=== PATIENT | female | born 1985 | race Caucasian/White ===

== ENCOUNTER → 2023-10-12 06:41 | Day surgery (SDC) | payer OTHER, SELFPAY | LOC: GI 06:41 | PROVIDERS: ATTENDING PHYSICIAN Internal Medicine | DX: Z12.11 Encounter for screening for malignant neoplasm of colon (principal); K64.8 Other hemorrhoids; K29.50 Unspecified chronic gastritis without bleeding; B96.81 Helicobacter pylori [H. pylori] as the cause of diseases classified elsewhere; R07.89 Other chest pain; R12 Heartburn | CPT/HCPCS: 45378; 43239; 88305; 88341; 88342 ==

== ENCOUNTER → 2023-11-08 06:47 | Outpatient (REF) | payer OTHER, SELFPAY | LOC: RAD 06:47 | PROVIDERS: ATTENDING PHYSICIAN Nurse Practitioner Family; FAMILY PHYSICIAN Student in an Organized Health Care Education/Training Program | DX: G54.0 Brachial plexus disorders (principal) | CPT/HCPCS: 93930 ==

== ENCOUNTER → 2024-03-05 15:49 | Outpatient (REF) | payer OTHER, SELFPAY ==
[2024-03-05 15:07] LABS: % Basophils 1.4 % (0-2); % Immature Granulocytes 0.2 % (0-0.5); % Lymphocytes 32.9 % (20.5-51.1); % Neutrophils 53.5 % (42.2-75.2); Absolute Basophils 0.1 10^3/uL (0-0.2); Absolute Eosinophils 0.4 10^3/uL (0-0.7); Absolute Lymphocytes 2.9 10^3/uL (1.2-3.4); Absolute Monocytes 0.7 10^3/uL (0.1-0.6); Absolute Neutrophils 4.6 10^3/uL (1.4-6.5); Hematocrit 38.3 % (37.0-47.0); Hemoglobin 13.8 g/dL (12.0-16.0); Mean Corpuscular Hgb 30.4 pg (27.0-31.0); Mean Corpuscular Volume 84.4 fL (81.0-99.0); Mean Platelet Volume 10.4 fL (7.4-10.4); Nucleated Red Blood Cells % 0 %; Platelet Count 290 10^3/uL (130-400); Red Blood Cell Count 4.54 10^6/uL (4.20-5.40); Red Cell Dist. Width 14.1 % (11.5-14.5); White Blood Cell Count 8.7 10^3/uL (4.8-10.8)
== END ==
LOC: OIDL 15:49
PROVIDERS: ATTENDING PHYSICIAN Nurse Practitioner Family
DX: D50.9 Iron deficiency anemia, unspecified (principal)
CPT/HCPCS: 85025

== ENCOUNTER → 2024-03-19 14:30 | Outpatient (REF) | payer OTHER, SELFPAY ==
[2024-03-19 10:58] LABS: % Basophils 1.7 % (0-2); % Eosinophils 2.7 % (0-6); % Immature Granulocytes 0.2 % (0-0.5); % Lymphocytes 41.3 % (20.5-51.1); % Monocytes 9.7 % (1.7-9.3); % Neutrophils 44.4 % (42.2-75.2); Absolute Basophils 0.1 10^3/uL (0-0.2); Absolute Eosinophils 0.2 10^3/uL (0-0.7); Absolute Lymphocytes 2.5 10^3/uL (1.2-3.4); Absolute Monocytes 0.6 10^3/uL (0.1-0.6); Absolute Neutrophils 2.7 10^3/uL (1.4-6.5); Hematocrit 38.9 % (37.0-47.0); Hemoglobin 13.8 g/dL (12.0-16.0); Mean Corp Hgb Conc. 35.5 g/dL (33.0-37.0); Mean Corpuscular Hgb 30.6 pg (27.0-31.0); Mean Corpuscular Volume 86.3 fL (81.0-99.0); Mean Platelet Volume 9.7 fL (7.4-10.4); Nucleated Red Blood Cells % 0 %; Platelet Count 297 10^3/uL (130-400); Red Blood Cell Count 4.51 10^6/uL (4.20-5.40); Red Cell Dist. Width 12.8 % (11.5-14.5)
== END ==
LOC: OIDL 14:30
PROVIDERS: ATTENDING PHYSICIAN Nurse Practitioner Family
DX: D50.9 Iron deficiency anemia, unspecified (principal); R53.83 Other fatigue; R00.0 Tachycardia, unspecified
CPT/HCPCS: 85025

== ENCOUNTER → 2024-06-13 13:33 | Outpatient (REF) | payer OTHER, SELFPAY | LOC: RAD 13:33 | PROVIDERS: ATTENDING PHYSICIAN Physical Medicine & Rehabilitation; FAMILY PHYSICIAN Emergency Medicine | DX: M54.14 Radiculopathy, thoracic region (principal) | CPT/HCPCS: 72072 ==

== ENCOUNTER → 2024-07-23 15:55 | Outpatient (REF) | payer OTHER, SELFPAY | LOC: RAD 15:55 | PROVIDERS: ATTENDING PHYSICIAN Emergency Medicine | DX: R93.89 Abnormal findings on diagnostic imaging of other specified body structures (principal); M79.89 Other specified soft tissue disorders | CPT/HCPCS: 71260; Q9967 ==

== ENCOUNTER → 2024-10-30 14:01 | Outpatient (REF) | payer OTHER, SELFPAY | LOC: RAD 14:01 | PROVIDERS: ATTENDING PHYSICIAN Nurse Practitioner Family; FAMILY PHYSICIAN Emergency Medicine | DX: R22.1 Localized swelling, mass and lump, neck (principal) | CPT/HCPCS: 73000 ==

== ENCOUNTER → 2024-11-06 10:06 | Outpatient (REF) | payer OTHER, SELFPAY | LOC: HWRAD 10:06 | PROVIDERS: ATTENDING PHYSICIAN Nurse Practitioner Family | DX: R22.1 Localized swelling, mass and lump, neck (principal) | CPT/HCPCS: 76536 ==

== ENCOUNTER → 2025-04-05 07:54 | Outpatient (REF) | payer OTHER, SELFPAY | LOC: RAD 07:54 | PROVIDERS: ATTENDING PHYSICIAN Family Medicine | DX: R93.89 Abnormal findings on diagnostic imaging of other specified body structures (principal) | CPT/HCPCS: 71260; Q9967 ==

== ENCOUNTER 2025-04-06 15:16 | Emergency (ER) | payer OTHER, SELFPAY ==
[2025-04-06 15:27] VITALS: BP 122/86
[2025-04-06 16:01] LABS: Hematocrit 39.6 % (37.0-47.0); Hemoglobin 13.8 g/dL (12.0-16.0); Mean Corp Hgb Conc. 34.8 g/dL (33.0-37.0); Mean Corpuscular Volume 88.0 fL (81.0-99.0); Nucleated Red Blood Cells % 0 %; Platelet Count 282 10^3/uL (130-400); Red Cell Dist. Width 12.3 % (11.5-14.5)
[2025-04-06 16:29] LABS: HCG, Serum Qualitative Screen Negative
[2025-04-06 16:34] LABS: ALT (SGPT) 21 U/L (0-35); AST (SGOT) 25 U/L (14-36); Albumin 4.8 g/dl (3.5-5.0); Alkaline Phosphatase 66 U/L (38-126); Blood Urea Nitrogen 12 mg/dl (7-17); Calcium 9.8 mg/dl (8.4-10.2); Carbon Dioxide 24 mmol/L (22-30); Chloride 107 mmol/L (98-107); Glucose 102 mg/dl (70-99); Lipase 173 U/L (23-300); Potassium 4.5 mmol/L (3.5-5.1); Sodium 137 mmol/L (135-145); Total Protein 7.8 g/dl (6.3-8.2); eGFR > 60.00
[2025-04-06 16:39] LABS: Troponin I < 0.012 ng/ml
--- NOTE | 2025-04-06 18:26 | ED.GENMED ---
History of Present Illness
<Dheeraj Landers Jr., PA-C - Last Filed: 04/06/25 22:15>
General
Chief Complaint: Abdominal Pain
Source: patient
Exam Limitations: none
Time Seen by Provider: 04/06/25 18:03
Nursing documentation reviewed up to this point in time: agreed with
History of Present Illness
History of Present Illness:
39-year-old female past medical history of hypothyroidism presenting to the emergency department today with concerns of left upper quadrant abdominal pain worsening throughout the week this week severe episode prior to arrival some mild pain ongoing
and is reproducible. Radiates to the left flank and left side. Patient also feels some lightheadedness and palpitations when pain is severe. Has had cardiac workups in the past also had a normal endoscopy and colonoscopy about 1 year ago.
Additionally had a chest CT scan yesterday with contrast that did not show any emergent process did show a 1.8 x 0.9 cm cystic structure in the left anterior lateral margin of the T4
Past History
<Dheeraj Landers Jr., PA-C - Last Filed: 04/06/25 22:15>
Past History
ED Past Medical History: Hypothyroidism
ED Past Surgical History: Appendectomy
Social History
Tobacco: Non-smoker
Alcohol: Occasional
Drug: None
Review of Systems
<Dheeraj Landers Jr., PA-C - Last Filed: 04/06/25 22:15>
Review of Systems
Allergies reviewed?: Yes
All Other Systems: ROS reviewed and negative except as documented in HPI and ROS
Phy Exam
<Dheeraj Landers Jr., PA-C - Last Filed: 04/06/25 22:15>
Physical Exam
Physical Exam:
GENERAL: Alert , in no apparent distress
EYE: pupils equal and reactive
NECK: Supple, no significant adenopathy.
ENT: o/p clr, mmm.
CARDIAC: Regular rate and rhythm .
LUNGS: Clear breath sounds bilaterally, no acute respiratory distress, no wheezes/rales/rhonchi
ABDOMEN: Vaguely reproducible discomfort to the left upper quadrant of the abdomen S vague oft, without focal tenderness, no r/g, no cvat
NEUROLOGICAL: Alert and oriented, no focal neuro deficits
SKIN: Warm and dry, skin intact.
MUSCULOSKELETAL: No edema, well perfused.
PSYCH: Normal and appropriate interaction.
Course
<Dheeraj Landers Jr., MER-[place] - Last Filed: 04/06/25 22:15>
Orders/Labs/Results
Orders:
Orders
04/06/25 15:30
Electrocardiogram (*1) Urgent
Reason for Study: Chest Pain
04/06/25 15:31
EKG- Treatment ONCE
Test Result ONCE
04/06/25 15:37
Complete Blood Count/With Diff Urgent
Comprehensive Metabolic Panel Urgent
Free T4 Urgent
Comment: ADD ON
HCG, Serum Qualitative Screen Urgent
Lipase Urgent
TSH Urgent
Comment: ADD ON
Troponin I Urgent
04/06/25 18:23
Add On- LAB Urgent
Tests Added?: tsh FREE T4
04/06/25 18:24
CT Abd/Pel (IV only)-[facility] only Urgent
Comment:
Reason For Exam: left sided abd pain
04/06/25 20:47
EKG [Electrocardiogram (*1)] Urgent
Reason for Study: Palpitations
EKG- Treatment ONCE
04/06/25 20:58
Famotidine [Pepcid] 20 mg IV NOW STA
Abnormal Lab Results
04/06/25
15:37
Glucose 102 H mg/dl
(70-99)
04/06/25 15:37
04/06/25 15:37
Vital Signs
Initial and Last Documented VS:
Initial Vital Signs
Temp Pulse Resp BP Pulse Ox
98.1 F 94 18 122/86 100
04/06/25 15:27 04/06/25 15:27 04/06/25 15:27 04/06/25 15:27 04/06/25 15:27
Last Documented Vital Signs
Temp Pulse Resp BP Pulse Ox
98.1 F 98 15 133/72 98
04/06/25 15:27 04/06/25 21:45 04/06/25 21:45 04/06/25 21:00 04/06/25 21:45
<Danelle Rocha MD - Last Filed: 04/06/25 21:07>
Orders/Labs/Results
Orders:
Orders
04/06/25 15:30
Electrocardiogram (*1) Urgent
Reason for Study: Chest Pain
04/06/25 15:31
EKG- Treatment ONCE
Test Result ONCE
04/06/25 15:37
Complete Blood Count/With Diff Urgent
Comprehensive Metabolic Panel Urgent
Free T4 Urgent
Comment: ADD ON
HCG, Serum Qualitative Screen Urgent
Lipase Urgent
TSH Urgent
Comment: ADD ON
Troponin I Urgent
04/06/25 18:23
Add On- LAB Urgent
Tests Added?: tsh FREE T4
04/06/25 18:24
CT Abd/Pel (IV only)-[facility] only Urgent
Comment:
Reason For Exam: left sided abd pain
04/06/25 20:47
EKG [Electrocardiogram (*1)] Urgent
Reason for Study: Palpitations
EKG- Treatment ONCE
04/06/25 20:58
Famotidine [Pepcid] 20 mg IV NOW STA
Abnormal Lab Results
04/06/25
15:37
Glucose 102 H mg/dl
(70-99)
04/06/25 15:37
04/06/25 15:37
Vital Signs
Initial and Last Documented VS:
Initial Vital Signs
Temp Pulse Resp BP Pulse Ox
98.1 F 94 18 122/86 100
04/06/25 15:27 04/06/25 15:27 04/06/25 15:27 04/06/25 15:27 04/06/25 15:27
Last Documented Vital Signs
Temp Pulse Resp BP Pulse Ox
98.1 F 98 15 133/72 98
04/06/25 15:27 04/06/25 21:45 04/06/25 21:45 04/06/25 21:00 04/06/25 21:45
<Dheeraj Landers Jr., PA-C - Last Filed: 04/06/25 22:15>
MDM/Problems Addressed
MDM/Problems Addressed:
39-year-old female presenting to the emergency department today with concerns of left-sided abdominal pain for multiple months but worsening this week specifically worsened today. Associated palpitations and lightheadedness when symptoms occur.
Here initial EKG in the 80s normal sinus rhythm labs unremarkable troponin negative cardiac etiology appears to be very unlikely also has had cardiac workup for similar symptoms in the past and did not find any emergent findings. CT scan reviewed
that was done as an outside test of the thoracic region that showed a small cyst near the T4 vertebrae. No emergent findings surrounding this. CT scan of the abdomen was obtained here due to reproducible pain of the left upper quadrant. This did
not show any emergent findings did show a small hiatal hernia. Patient was given famotidine considering the possibility this could be influencing symptoms to some extent. Otherwise no signs of emergent process from initial ER workup. At time of
reassessment her heart rate was in the 120s and EKG was performed and showed sinus tachycardia he was given fluids and heart rate improved spontaneously to the 90s without any additional treatment other than fluid administration. Was advised for
close outpatient follow-up. Return precautions given.
<Dheeraj Landers Jr., PA-C - Last Filed: 04/06/25 22:15>
*Pulse Oximetry
SaO2: 100
Oxygen Mode of Delivery: Room air
Patient hypoxic: no (98)
*Critical Care Note
Total Time (30-74mins, 75-104mins- exclusive of procedures): Not Applicable
ED Attending Note
<Dheeraj Landers Jr., PA-C - Last Filed: 04/06/25 22:15>
-
Portions of this chart may have been created with voice recognition software.� Occasional wrong word or��sound alike� substitutions may have occurred due to the inherent limitations of voice recognition software.
<Danelle Rocha MD - Last Filed: 04/06/25 21:07>
ED Attending Note
Patient seen and examined by attending physician: Yes
I performed the substantive portion of visit, reviewed & personally made and approve the management plan that is documented in note by myself or JOSSE.: Yes
ED Attending Note:
39-year-old female presents the emergency department with complaints of discomfort that is been on and off for about a year, extensive workup with cardiology, GI, etc. She does have a cyst at the T4 area which is thought to be unrelated to her
symptoms. Symptoms got more intense today which prompted her visit here. She describes pain in the upper abdomen/central chest, resolved spontaneously, not associated with dyspnea. Of note, patient has a small hiatal hernia here. I did recommend
that she start an antacid. Workup otherwise unremarkable. Low suspicion for PE given lack of risk factors, specifically denies smoking, estrogen use, recent immobilization, recent trauma, etc. Patient had a brief episode of sinus tachycardia and
appeared anxious at that time, self resolved after few moments.
Discharge Plan
Departure
Patient Disposition: Home (Routine Discharge)
Date of Disposition: 04/06/25
Time of Disposition: 22:12
Patient with high blood pressure during this ER visit?: No
Condition: Good
Covid-19: Not Applicable
Discharge Problem:
Abdominal pain
Instructions: Abdominal Pain
Prescriptions:
No Action
ibuprofen 400 MG tablet
600 mg PO QIDPRN PRN (Reason: pain) 0RF
levothyroxine 50 mcg Tablet
50 mcg PO DAILY
Referrals:
Hiram Diaz DO [Active, Neurosurgery]
Francisco Hawkins DO [Family Provider, Family Practice]
Activity Restrictions/Additional Instructions:
You came to the emergency department today with concerns of ongoing abdominal pain. Here and reassuring assessment with no signs of emergent life threats causing her symptoms. This could be GI related. Please take famotidine 1-2 times daily to
help with symptoms and otherwise follow-up with your GI doctor. Please also discuss the case with your thoracic and follow-up with neurosurgery if that is indicated. Return for any worsening, new or concerning symptoms.
Interventions
Interventions:
*Risk Screen - Suicide Last Done: 04/06/25 15:27
*General Assessment Last Done: 04/06/25 15:27
*ED COVID-19 Vaccine History Last Done: 04/06/25 15:27
[facility] Assessment Last Done: 04/06/25 18:58
Discharge Date and Time
Print Language: KOREAN
[2025-04-06 19:50] LABS: TSH 2.48 uIU/ml (0.47-4.68)
[2025-04-06 20:03] VITALS: BP 134/89
[2025-04-06 20:58] VITALS: BP 141/82
[2025-04-06 21:00] VITALS: BP 133/72
[2025-04-06] MEDS: PEPCID 20 MG IV (21:09)
== END 2025-04-06 22:29 | disposition home or self-care (01) ==
LOC: EMR 15:16
PROVIDERS: EMERGENCY PHYSICIAN Emergency Medicine; FAMILY PHYSICIAN Family Medicine
DX: R10.9 Unspecified abdominal pain (principal); R00.2 Palpitations; R42 Dizziness and giddiness; E03.9 Hypothyroidism, unspecified; Z90.49 Acquired absence of other specified parts of digestive tract
CPT/HCPCS: 99284; 96374; 74177; 80053; 83690; 84439; 84443; 84484; 84703; 85025; 93005; Q9967

== ENCOUNTER → 2025-07-24 12:25 | Outpatient (REF) | payer OTHER, SELFPAY | LOC: HWRAD 12:25 | PROVIDERS: ATTENDING PHYSICIAN Nurse Practitioner Family | DX: R10.A2 Flank pain, left side (principal); R35.0 Frequency of micturition | CPT/HCPCS: 76775 ==